=== PATIENT | male | born 1960 | race Caucasian/White ===

== ENCOUNTER 2021-07-09 10:38 | Emergency (ER) | payer OTHER, SELFPAY ==
[2021-07-09 09:32] VITALS: BMI 24.9
[2021-07-09 10:39] VITALS: BP 154/93; PULSE 87; RESP 16; TEMP 36.2; O2SAT 99; BMI 25.7
--- NOTE | 2021-07-09 10:55 | EDS_ITS ---
HPI History of Present Illness Chief Complaint: General Illness Narrative Narrative: 61-year-old male presenting with cough, myalgias, chills, loss of taste and smell. He states his symptom onset was Thursday which makes is the fifth day of symptoms. He does not have chest pain. He states he has not had a fever. 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 He has had his Covid vaccination. Patient was seen by urgent care prior to arrival had a negative rapid COVID-19 test. He had negative rapid flu. Patient states he was sent to the ER because he has a morphine pump for chronic pain and they felt he needed to have lab work to be sure that his pain pump was not masking other symptoms. [facility] Medical History Fatigue Severe headache Home Medications Unobtainable 07/09/21 [History Last Taken Unknown] Allergy/AdvReac Type Severity Reaction Status Date / Time varenicline [From Chantix] Allergy Chest Verified 07/09/21 10:38 tightness Social History Smoking Status: Never smoker alcohol intake: never ROS ROS ED Constitutional Constitutional ED: Reports chills and other Details: Fatigue ; Denies fever(s) or weight loss Eyes Eyes: Denies blurry vision or diplopia ENT ENT ED: Reports sore throat and other; Denies rhinorrhea Cardiovascular Cardiovascular: Denies orthopnea Respiratory/Chest Respiratory/Chest: Reports cough; Denies dyspnea on exertion or orthopnea Gastrointestinal Gastrointestinal: Reports nausea and vomiting; Denies abdominal pain Genitourinary Genitourinary ED: Denies dysuria or hematuria Musculoskeletal Musculoskeletal: Reports myalgias; Denies arthralgias, back pain or neck pain Integumentary Denies Abrasions or rash Neurologic Neurologic: Reports headache(s); Denies paresthesias or weakness EXAM Physical Exam Const Vital Signs: 07/09/21 10:39 07/09/21 11:38 Temperature 97.2 F L Temperature Source Temporal Pulse Rate 87 Respiratory Rate 16 Respiratory Effort Normal Respiratory Pattern Normal Blood Pressure 154/93 H Blood Pressure Mean 113 Pulse Ox 99 Oxygen Delivery Method Room Air Positive well nourished General Appearance ED: NAD HEENT Reports moist mucous membranes Negative for trauma Eyes PERRL and EOMs intact bilaterally General Eye ED: Negative for pale conjunctiva or scleral icterus Neck no lymphadenopathy and supple Resp normal respiratory effort and clear to auscultation bilaterally Auscultation: Negative for rales, rhonchi or diminished lung sounds Cardio regular rate and regular rhythm GI normal to inspection, nondistended, normoactive bowel sounds Neuro oriented x3 and CN's II-XII intact bilaterally Sensorium / Orientation: alert Psych Negative for mental status grossly normal Skin No no rashes or lesions noted and No no wounds MDM MDM MDM Narrative Medical decision making narrative: Patient presenting from urgent care for evaluation. He had a negative rapid flu test and negative rapid Covid test at the urgent care. I did check basic lab work and the patient has no leukocytosis, leukopenia, lymphopenia. His creatinine is 1.44 without a known baseline. He states that he has been trying to get an office visit with his current physician and states he needs a new one. Chest x-ray on my interpretation shows no acute cardiopulmonary process and the radiologist does agree. I did check an RSV here today and this is negative. I will send a Covid PCR and patient will quarantine given his body aches, chills, loss of taste and smell. Patient is given return precautions. Feel he stable for discharge home at this time. Patient will follow up for his test results. Impression: 1. Viral syndrome Lab Data Labs: Laboratory Results - last 24 hr 07/09/21 07/09/21 07/09/21 11:10 11:10 11:10 WBC 5.4 RBC 4.87 Hgb 13.8 Hct 42.7 MCV 87.7 MCH 28.3 MCHC 32.3 RDW Std Deviation 42.8 RDW Coeff of Jesika 13.5 Plt Count 239 MPV 8.2 Immature Gran % (Auto) 0.400 Neut % (Auto) 63.8 Lymph % (Auto) 23.9 [place] % (Auto) 7.1 Eos % (Auto) 4.1 Baso % (Auto) 0.7 Absolute Neuts (auto) 3.4 Absolute Lymphs (auto) 1.28 Nucleated RBC % 0 Sodium 139 Potassium 3.7 Chloride 105 Carbon Dioxide 27.0 Anion Gap 7 BUN 15 Creatinine 1.44 H Estim Creat Clear Calc 51.64 Est GFR (MDRD) Af Amer 65 Est GFR (MDRD) Non-Af 53 L BUN/Creatinine Ratio 10.4 Glucose 108 H Calcium 9.1 COVID-19 (MANISH) Not Detected Radiography Diagnostic Testing: Radiology Impression Chest X-Ray 07/09/21 11:20 IMPRESSION: Hyperinflation. No acute abnormality is seen. Electronically Signed: Ab Giles MD at 11:28 EDT , Service support , Discharge Plan Triage Chief Complaint: General Illness ED Provider: Connor Middleton Dx/Rx/DC Orders Instructions: Coronavirus Disease 2019 (COVID-19): Caring for Yourself or Others, ED Renal Insufficiency Prescriptions: No Action Unobtainable RF: 0 Primary Care Provider: Care Physician,No Primary Referrals: Ashley Toribio, DO [STAFF PHYSICIAN] - As soon as possible [facility],Out of [NON-STAFF] - Disposition Disposition: Home, Self Care Discharge Date/Time: 07/09/21 12:41
[2021-07-09 11:19] LABS: Absolute Lymphocyte Count 1.28 X10^3/uL (0.83-4.51); Absolute Neutrophil Count 3.4 X10^3/uL (2.0-7.7); Basophil# 0.04 X10^3/uL; Basophil% 0.7 % (0-1); Eosinophil# 0.22 X10^3/uL; Eosinophils% 4.1 % (0-5); Hematocrit 42.7 % (40-54); Hemoglobin 13.8 g/dL (13.0-16.5); Lymphocyte # 1.28 X10^3/ul (0.83-4.51); Lymphocyte % 23.9 % (19-41); Mean Corp Hgb Conc 32.3 g/dL (32-36); Mean Corpuscular Hgb 28.3 pg (27.0-32.0); Mean Corpuscular Volume 87.7 fL (80-94); Mean Platelet Vol. 8.2 fl (6.2-12.0); Monocyte# 0.38 X10^3/uL; Monocyte% 7.1 % (0-10); NRBC Flagged by Analyzer 0 % (0-5); Neutrophil # 3.42 X10^3/uL (2.7-7.7); Neutrophil % 63.8 % (47-70); Platelet Count 239 K/mm3 (150-450); RBC Distribution Width CV 13.5 % (11.6-14.6); RBC Distribution Width SD 42.8 fl (35.1-43.9); Red Blood Count 4.87 M/mm3 (4.6-6.2); White Blood Count 5.4 K/mm3 (4.4-11.0)
--- NOTE | 2021-07-09 11:20 | RAD_ITS ---
STUDY: X-RAY CHEST REASON FOR EXAM: Male, 61 years old. Cough. Generalized illness. TECHNIQUE: Single AP portable view of the chest. COMPARISON: None. FINDINGS: There is hyperinflation of the lungs consistent with chronic obstructive lung disease (COPD). There is no demonstrated pleural abnormality. Normal size heart. Normal mediastinum and camryn. Normal visualized pulmonary arteries. Normal visualized aortic arch and descending thoracic aorta. Normal visualized thoracic spine. Normal visualized ribs, clavicles, and shoulders. Oral contrast is seen within the transverse colon. RAD/Chest 1 View (Portable) IMPRESSION: Hyperinflation. No acute abnormality is seen. Electronically Signed: Ab Giles MD at 11:28 EDT , Service support ,
[2021-07-09 11:31] LABS: Anion Gap 7 (5-15); BUN 15 mg/dL (7-18); BUN/Creat Ratio 10.4 RATIO (10-20); Calcium,Total 9.1 mg/dL (8.5-10.1); Chloride 105 mmol/L (98-107); Creatinine, Serum 1.44 mg/dL (0.70-1.30); EST Glomerular Filtration Rate 53 mL/min (>60); Est Glom Filt Rate - Afr Amer 65 mL/min (>60); Estimated Creatinine Clearance 51.64 ml/min; Glucose 108 mg/dL (74-106); Potassium 3.7 mmol/L (3.5-5.1); Sodium Level 139 mmol/L (136-145)
== END 2021-07-09 12:41 | disposition home or self-care (01) ==
LOC: ED 12:25
PROVIDERS: Emergency Provider Student in an Organized Health Care Education/Training Program
DX: B34.9 Viral infection, unspecified (principal); R05 Cough; R68.83 Chills (without fever); M79.10 Myalgia, unspecified site; R43.8 Other disturbances of smell and taste; R11.2 Nausea with vomiting, unspecified
CPT/HCPCS: 71045; 80048; 85025; 87635; 87807; 99281; 99282; U0005; U0003

== ENCOUNTER → 2021-08-26 07:51 | Outpatient (CLI) | payer OTHER, SELFPAY ==
--- NOTE | 2021-08-26 07:56 | CT_ITS ---
STUDY: CT LUMBAR SPINE WITHOUT CONTRAST REASON FOR EXAM: Male, 61 years old. BACK PAIN RADIATION DOSAGE (If Supplied By Facility): CTDIvol = ( 18.66 ) mGy, DLP = ( 486.32 ) mGycm TECHNIQUE: The patient was scanned in a multi detector CT scanner. High resolution transaxial imaging was performed. Images were obtained from T12 to S1 vertebral level. Sagittal and coronal images were reconstructed. Individualized dose optimization techniques were used for this CT. COMPARISON: None FINDINGS: There is straightening of the normal lumbar lordosis. There is no substantial scoliosis. A TENS unit is seen. The electrodes are seen throughout the lumbar level. There is approximately 30% loss of height of the superior endplate of the L1 vertebrae. L1-2: 30% loss of height of the superior endplate of the L1 vertebrae. L2-3: There is a mild degree of disc space narrowing. Mild degree of diffuse posterior disc bulge. L3-4: Facet joint osteoarthritis and hypertrophy. Mild spondylosis. Mild degree of diffuse posterior disc bulge. There is a mild degree of bilateral neural foraminal stenosis. L4-5: The patient is status post laminectomy with interpedicular screw fixation. Prosthetic disc is seen. Mild degree of bilateral neural foraminal stenosis. L5-S1: Status post laminectomy and interpedicular screw fixation. There is evidence of facet joint osteoarthritis. No significant abnormality is seen. Atherosclerotic plaque formation of the abdominal aorta. CT/Spine Lumbar without Contrast IMPRESSION: Multilevel degenerative changes, as described above. 30% loss of height of the superior endplate of the L1 vertebrae. Electronically Signed: Ab Giles MD at 10:22 EDT , Service support ,
== END ==
LOC: CT 07:53
PROVIDERS: Referring Provider Anesthesiology Pain Medicine; Visit Provider Anesthesiology Pain Medicine
DX: M96.1 Postlaminectomy syndrome, not elsewhere classified (principal); M51.36 Other intervertebral disc degeneration, lumbar region; G89.4 Chronic pain syndrome; M51.37 Other intervertebral disc degeneration, lumbosacral region
CPT/HCPCS: 72131